=== PATIENT | male | born 1945 ===

== ENCOUNTER → 2022-10-26 | Outpatient (CLI) | payer MEDICARE | END | disposition home or self-care (01) | LOC: PLD 07:23 → LAB SHORT 07:23 | DX: L57.0 Actinic keratosis (principal); L01.02 Bockhart's impetigo; B88.0 Other acariasis | CPT/HCPCS: 88305 ==

== ENCOUNTER → 2022-12-30 | Outpatient (CLI) | payer MEDICARE ==
[2022-12-30 16:12] LABS: CHOL/HDL RATIO 3.2; Cholesterol 161 mg/dL (50-200); HDL Cholesterol 51 mg/dL (>39); LDL/HDL RATIO 1.9; Low Density Lipoprotein Chol 99 mg/dL (0-110); Triglycerides 54 mg/dL (30-160); Very Low Density Lipoprot Chol 10 mg/dL (6-32)
[2022-12-30 16:20] LABS: PSA, Free 0.727 ng/mL
== END ==
LOC: LAB 09:28 → LAB SHORT 09:28
PROVIDERS: Family Medicine
DX: E78.5 Hyperlipidemia, unspecified (principal); I10 Essential (primary) hypertension; R73.03 Prediabetes; R97.20 Elevated prostate specific antigen [PSA]
CPT/HCPCS: 80061; 83036; 84153; 84154; 84443

== ENCOUNTER 2024-11-28 12:36 | Day surgery (SDC) | payer OTHER ==
[~2024-11-28] VITALS: Ht 185.4 cm; Wt 118.1 kg
[~2024-11-28 12:36] MED LIST: Balanced Salt Epinephrine Irrigation Solution 500 mL IR SCH; Moxifloxacin HCL 0.5 MG/0.1 ML 0.4MLSYR RIGHTEYE SCH; Ondansetron 4 MG SoluTab MM PRN; PHENYLEPHRINE\\TROPICAMIDE\\TETRACAINE OPHTHALMIC DILATING SOLN RIGHTEYE PRN; Povidone-Iodine 450 DROP/30 ML Solution ONE; Povidone-Iodine 450 DROP/30 ML Solution RIGHTEYE SCH; Tetracaine HCl 0.5% Opth Soln 15 ml ONE; Tetracaine HCl/Pf 0.5% Opth Soln 4 ml ONE; diazePAM 5 MG,diazePAM 2 MG PO SCH
[2024-11-28] MEDS ORDERED: CHLO25B PO (13:32)
[2024-11-28] MEDS ORDERED: LOSA50 PO (13:32)
[2024-11-28] MEDS ORDERED: AMLO5 PO (13:32)
[2024-11-28] MEDS ORDERED: Tetracaine HCl 0.5% Opth Soln 15 ml RIGHTEYE ONE (14:23)
--- NOTE | 2024-11-28 14:34 | NUR ---
11/28/24 1434 Ricki Stinson N 162/75 100% ON 10L BLOW BY O2 64 18 [address]ATING WITH DR HILLMAN. TOLERATING PROCEDURE WELL.
[2024-11-28 14:46] VITALS: BP 141/83
== END 2024-11-28 15:14 | disposition home or self-care (01) ==
LOC: ORSCSDS 12:36
PROVIDERS: Student in an Organized Health Care Education/Training Program
PROC: 08RJ3JZ Replacement of Right Lens with Synthetic Substitute, Percutaneous Approach (ICD-10-PCS; principal; 2024-11-28 14:30)
DX: H25.813 Combined forms of age-related cataract, bilateral (principal); Z79.899 Other long term (current) drug therapy
CPT/HCPCS: A9270; V2632

== ENCOUNTER 2024-12-04 12:30 | Day surgery (SDC) | payer OTHER ==
[~2024-12-04] VITALS: Ht 185.4 cm; Wt 119.4 kg
[~2024-12-04 12:30] MED LIST changes: +AMLO5 PO; +CHLO25B PO; +LOSA50 PO; +Moxifloxacin HCL 0.5 MG/0.1 ML 0.4MLSYR LEFTEYE SCH; -Moxifloxacin HCL 0.5 MG/0.1 ML 0.4MLSYR RIGHTEYE SCH; +PHENYLEPHRINE\\TROPICAMIDE\\TETRACAINE OPHTHALMIC DILATING SOLN LEFTEYE PRN; -PHENYLEPHRINE\\TROPICAMIDE\\TETRACAINE OPHTHALMIC DILATING SOLN RIGHTEYE PRN; +Povidone-Iodine 450 DROP/30 ML Solution LEFTEYE SCH; -Povidone-Iodine 450 DROP/30 ML Solution RIGHTEYE SCH; -Tetracaine HCl 0.5% Opth Soln 15 ml ONE
--- NOTE | 2024-12-04 12:51 | NUR ---
12/04/24 1251 Acacia Vogt PT STATES ANXIETY LEVEL IS 0/10 BEFORE 7MG PO VALIUM CALL LIGHT IN HAND PT IS ON CONTINUOUS PULSE OX MONITORING
--- NOTE | 2024-12-04 13:12 | NUR ---
12/04/24 1312 Acacia Ramos HR: 45 BP: 124/59 SPO2: 94% ON BLOW BY O2
--- NOTE | 2024-12-04 13:58 | NUR ---
12/04/24 1358 [facility] 1348: PT HR IS SUSTAINING IN 45-49 PER MONITOR. PATIENT DENIES LIGHTHEADEDNESS, SHORTNESS OF BREATH, DIZZINESS OR OTHER SYMPTOMS. IN PRE-OP PATIENT'S HR WAS NOTED TO BE 50. CONSULTED DR HILLMAN. PER DR HILLMAN PATIENT HR WAS IN THIS RANGE DURING PROCEDURE. PER DR HILLMAN PATIENT IS OK TO DISCHARGE.
[2024-12-04 13:59] VITALS: BP 126/58
== END 2024-12-04 13:53 | disposition home or self-care (01) ==
LOC: ORSCSDS 12:30
PROVIDERS: Student in an Organized Health Care Education/Training Program
PROC: 08RK3JZ Replacement of Left Lens with Synthetic Substitute, Percutaneous Approach (ICD-10-PCS; principal; 2024-12-04 14:00)
DX: H25.812 Combined forms of age-related cataract, left eye (principal); Z96.1 Presence of intraocular lens
CPT/HCPCS: A9270; V2632